=== PATIENT | female | born 1995 | race American Indian/Alaskan Native ===

== ENCOUNTER 2018-09-12 07:49 | Day surgery (SDC) | payer OTHER, MEDICAID ==
[~2018-09-12 07:49] MED LIST: METHERGINE IM ONE; SILVER NITRATE TP ONE
[2018-09-12] MEDS ORDERED: SUBLIMAZE IV PRN (08:34)
[2018-09-12] MEDS ORDERED: ZOFRAN IV PRN (08:34)
[2018-09-12] MEDS ORDERED: TORADOL IV PRN (08:34)
[2018-09-12] MEDS ORDERED: DILAUDID IV PRN (08:34)
[2018-09-12] MEDS ORDERED: DEMEROL IV PRN (08:34)
--- NOTE | 2018-09-12 08:40 | Anesthesia Consultation ---
Anesthesia Consult and Med Hx Date of service: 09/12/18 - Airway Anesthetic Teeth Evaluation: Good, Chipped ROM Head & Neck: Adequate Mental/Hyoid Distance: Adequate Mallampati Class: Class I Intubation Access Assessment: Probably Good - Pulmonary Exam CTA: Yes - Cardiac Exam Cardiac Exam: RRR - Pre-Operative Health Status ASA Pre-Surgery Classification: ASA2 Proposed Anesthetic Plan: General - Pulmonary Hx Smoking: Yes (marijuana, last night) Hx Asthma: No Hx Respiratory Symptoms: No Hx Sleep Apnea: No - Cardiovascular System Hx Hypertension: No Hx Heart Attack/AMI: No Hx Cardia Arrhythmia: No - Central Nervous System Hx Neuromuscular Disorder: No Hx Psychiatric Problems: No - Gastrointestinal Hx Gastroesophageal Reflux Disease: Yes (only with food; no current symptoms) - Endocrine Hx Renal Disease: No Hx Liver Disease: No Hx Insulin Dependent Diabetes: No Hx Non-Insulin Dependent Diabetes: No Hx Thyroid Disease: No - Hematic Hx Sickle Cell Disease: No - Other Systems Hx Cancer: No Hx Obesity: Yes - Additional Comments Anesthesia Medical History Comments: No previous surgeries, no FHAC
--- NOTE | 2018-09-12 08:41 | Anesthesia Day of Surgery ---
Anesthesia Day of Surgery - Day of Surgery Patient Examined: Yes Patient H&P Reviewed: Yes Patient is NPO: Yes Beta Blockers: No (n/a) Cardiac Clearance: No (n/a) Pulmonary Clearance: No (n/a)
[2018-09-12] MEDS ORDERED: LACTATED RINGERS 1,000 ML IV SCH (09:00)
[2018-09-12] MEDS ORDERED: TYLENOL PO PRN (09:30)
[2018-09-12] MEDS ORDERED: XYLOCAINE MPF 2% ONE (10:20)
[2018-09-12] MEDS ORDERED: DIPRIVAN 10 MG/ML IV ONE (10:20)
[2018-09-12] MEDS ORDERED: SUBLIMAZE ONE ×2 (10:20→11:58)
[2018-09-12] MEDS ORDERED: NACL 0.9% IR ONE (11:45)
[2018-09-12] MEDS ORDERED: METHERGINE IM ONE (11:58)
--- NOTE | 2018-09-12 12:06 | Operative Report ---
Operative Report Operative Report: Operative Report: Preoperative diagnosis: Missed . Postoperative diagnosis: same as preoperative diagnosis. Procedure: Suction D&C Surgeon: Dr. Ortega Manager Property: none Anesthesia: General. EBL: 50 cc IVF: RL 1 liter Complications: none Procedure details: The risks, benefits, and alternatives of the procedure were discussed in detail with the patient which included but not limited to infection, hemorrhage requiring a, and uterine perforation. The patient expressed understanding, her questions answered, and she gave informed consent. The patient was taken to the operating room with an IVF infusing Ringer's lactate. In the operating room, she was placed in the dorsal supine position and given general anesthesia. Then, she was placed on the stirrups in a dorsal lithotomy position. The perineum vagina and cervix were washed and she was prepared and draped in the usual sterile fashion. Examination under anesthesia revealed normal external genitalia and vagina. The cervix was closed, long, posterior, no bleeding. The uterus was enlarged to 9-wk size, retroverted, mobile. The adnexae were nonpalpable. A weighted speculum was placed on the posterior vaginal wall. The anterior lip of the cervix was grasped with a single-tooth tenaculum. The cervical os was dilated, a 8 mm suction curette was connected to the suction device and introduced into the uterine cavity. It was rotated and moderate amount of tissues was suctioned. A gentle curettage was performed until a gritty texture was noticed. The suction device was re- introduced into the uterine cavity and was rotated to remove the remaining products of conception. The instruments were then removed from the uterine c avity. The count of laps, needles, sponges, and instrument were correct 2. The patient tolerated the procedure well. She was awakened from the anesthesia and taken to the recovery room in a stable condition.
[2018-09-12] MEDS ORDERED: NACL 0.9% 1000 ML 1,000 ML ONE (12:11)
[2018-09-12 12:55] VITALS: BP 120/80
--- NOTE | 2018-09-12 18:05 | Post Anesthesia Evaluation ---
- Post Anesthesia Evaluation Patient Participated: Yes Airway Patent: Yes Stable Respiratory Function: Yes Nausea/Vomiting: No Temp > 96.8F: Yes Pain Manageable: Yes Adequeate Hydration: Yes Anesthesia Complications: No
== END 2018-09-12 13:20 | disposition home or self-care (01) ==
LOC: OR 07:49
PROVIDERS: ATTEND Obstetrics & Gynecology
DX: O02.1 Missed abortion (principal); K21.9 Gastro-esophageal reflux disease without esophagitis; E66.9 Obesity, unspecified; Z68.30 Body mass index [BMI] 30.0-30.9, adult; Z88.0 Allergy status to penicillin; Z87.891 Personal history of nicotine dependence
CPT/HCPCS: 59820; 86900; 86901; 88305; J2210; J2704; J3010; J7030; J7120